=== PATIENT | female | born 1930 | race Caucasian/White ===

== ENCOUNTER 2017-04-12 17:50 | Inpatient (IN) | payer OTHER ==
[~2017-04-12] VITALS: Ht 162.6 cm; Wt 55.3 kg
[~2017-04-12 17:50] MED LIST: DIOVAN160 M1 PO; LUMIGAN2.5 M1; METHAZOLAMIDE25 MG PO; TRUSOPT5 ML
== END 2017-04-23 13:52 | disposition expired | DRG 808 ==
LOC: ER 17:50 → SURH 04-13 11:59 → SEC-K 04-13 11:59 → MEDJ 04-15 23:08 → SEC-K 04-16 02:17 → SURH 04-16 18:30 → MEDI 04-16 18:30 → SURH 04-21 15:49
PROC: 30233N1 Transfusion of Nonautologous Red Blood Cells into Peripheral Vein, Percutaneous Approach (ICD-10-PCS; 2017-04-13)
PROC: 8E0ZXY6 Isolation (ICD-10-PCS; 2017-04-13)
PROC: 3E0F7GC Introduction of Other Therapeutic Substance into Respiratory Tract, Via Natural or Artificial Opening (ICD-10-PCS; principal; 2017-04-17)
PROC: 4A033R1 Measurement of Arterial Saturation, Peripheral, Percutaneous Approach (ICD-10-PCS; 2017-04-21)
PROC: 4A12X4Z Monitoring of Cardiac Electrical Activity, External Approach (ICD-10-PCS; 2017-04-21)
PROC: 5A09457 Assistance with Respiratory Ventilation, 24-96 Consecutive Hours, Continuous Positive Airway Pressure (ICD-10-PCS; 2017-04-21)
PROC: B246ZZZ Ultrasonography of Right and Left Heart (ICD-10-PCS; 2017-04-22)
DX: D61.810 Antineoplastic chemotherapy induced pancytopenia (principal); J96.01 Acute respiratory failure with hypoxia; J96.02 Acute respiratory failure with hypercapnia; C18.4 Malignant neoplasm of transverse colon; C78.02 Secondary malignant neoplasm of left lung; C78.01 Secondary malignant neoplasm of right lung; C78.89 Secondary malignant neoplasm of other digestive organs; C78.7 Secondary malignant neoplasm of liver and intrahepatic bile duct; N17.8 Other acute kidney failure; K52.1 Toxic gastroenteritis and colitis; E87.0 Hyperosmolality and hypernatremia; T45.1X5A Adverse effect of antineoplastic and immunosuppressive drugs, initial encounter; Y92.098 Other place in other non-institutional residence as the place of occurrence of the external cause; E86.0 Dehydration; D63.0 Anemia in neoplastic disease; I10 Essential (primary) hypertension; E88.09 Other disorders of plasma-protein metabolism, not elsewhere classified; E87.6 Hypokalemia; J09.X2 Influenza due to identified novel influenza A virus with other respiratory manifestations; H40.89 Other specified glaucoma; Z66 Do not resuscitate